=== PATIENT | female | born 1940 | race Caucasian/White ===

== ENCOUNTER → 2025-03-03 | Outpatient (CLI) | payer MEDICARE, BC, SELFPAY ==
--- NOTE | 2025-03-03 14:00 | XR_ITS ---
Examination: Bone densitometry Date and time of exam:March 03, 2025 1420 hours INDICATIONS: Hysterectomy age 41 post hysterectomy elbow fracture age 51 levothyroxine 5 years, personal history osteoporosis Technique: Lumbar spine and hip total bone mineralization values of an calculated. Peak reference and age match control results have been displayed. Findings: Lumbar spine total bone mineralization is0.532 gm/cm2. This is 4.7 standard deviations below peak reference. This is 1.9 standard deviations below age-matched controls. Hip total bone mineralization is 525 gm/cm2 This is 3.4 standard deviations below peak reference. This is 1.1 standard deviations below age-matched controls Impression: There is osteoporosis based on lumbar spine measurements. There is osteoporosis based on hip measurements
== END | disposition home or self-care (01) ==
LOC: CDIM 13:56
PROVIDERS: Referring Provider Student in an Organized Health Care Education/Training Program; Visit Provider Student in an Organized Health Care Education/Training Program
DX: Z13.820 Encounter for screening for osteoporosis (principal); M81.0 Age-related osteoporosis without current pathological fracture
CPT/HCPCS: 77080

== ENCOUNTER → 2025-08-31 | Outpatient (CLI) | payer MEDICARE, BC, SELFPAY ==
--- NOTE | 2025-08-31 14:30 | XR_ITS ---
Examination: Pelvic ultrasound, transabdominal, complete Technique: Transabdominal ultrasound of the pelvis performed using grayscale imaging Date and time of exam: August 31, 2025, 1455 hours INDICATIONS: Epigastric pain pelvic pain beginning 6 months ago. FINDINGS: Absent uterus Ovaries are not visualized IMPRESSION: No pelvic mass No free fluid in the pelvis
--- NOTE | 2025-08-31 14:30 | XR_ITS ---
Examination: Abdomen sonogram, complete Date and time of exam: August 31, 2025, 1457 hours INDICATIONS: Epigastric pain beginning 6 months ago. Technique: Multiple real-time grayscale transabdominal sonographic images of the abdomen have been obtained. Findings: Normal gallbladder Normal common bile duct 0.5 cm Pancreatic head 1.6 cm Aorta not enlarged. Liver 13.7 cm 21 mm 36 mm cyst Normal hepatopetal portal venous flow Patent IVC Right kidney 9.4 cm cortex 1.3 cm Left kidney 8.4 cm renal cortex 1.4 cm Moderate left renal scar formation 16 mm left renal cyst Spleen 6.6 cm IMPRESSION: Normal gallbladder Normal common bile duct
== END | disposition home or self-care (01) ==
PROVIDERS: PCP Student in an Organized Health Care Education/Training Program; Referring Provider Student in an Organized Health Care Education/Training Program; Visit Provider Student in an Organized Health Care Education/Training Program
DX: R10.9 Unspecified abdominal pain (principal); R10.13 Epigastric pain
CPT/HCPCS: 76700; 76856